=== PATIENT | female | born 1950 | race Caucasian/White ===

== ENCOUNTER 2017-02-18 11:51 | Emergency (ER) | payer OTHER ==
[~2017-02-18] VITALS: Ht 152.4 cm; Wt 65.9 kg
[~2017-02-18 11:51] MED LIST: ACCOLATE20 MG PO; ACETAMINOPHEN325 M1 PO; AFRIN,GENASAL D15 ML BOTH NARES; ASCORBIC ACID500 M3 PO; ATIVAN0.5 MG PO; BENZTROPINE MESY1 MG PO; BISAC-EVAC10 MG PR; CARAFATE1 GM PO; CHLORPROMAZINE200 MG PO; COGENTIN1 MG PO; COLACE100 MG PO; CRANBERRY400 M1 PO; CRANBERRY400 MG PO; DAILY VALUE1 EACH PO; DAILY VITE WIT1 EACH PO; DITROPAN XL15 MG PO; DOCUSATE SODIU100 MG PO; DOXYCYCLINE HY100 MG PO; DULCOLAX10 MG PR; DUONEB 2.5-0.5 M3 ML IH; ESCITALOPRAM OXA5 MG PO; FERROUS SULFAT325 MG PO; FLOMAX0.4 MG PO; FOLIC ACID1 MG PO; FORTICAL,200 INTUNI NS; GLYCOLAX225 GM PO; HALDOL10 MG PO; HALOPERIDOL20 MG PO; LANSOPRAZOLE30 MG PO; LEXAPRO10 MG PO; LEXAPRO5 MG PO; LOPRESSOR12.5 MG PO; LOW DOSE ASPIRI81 M1 PO; METOPROLOL TART25 MG PO; MIRALAX17 GM PO; MIRALAX255 GM PO; MORGIDOX100 MG PO; NABUMETONE500 MG PO; NEXIUM40 MG PO; NITROFURANTOIN100 MG PO; OCEAN NASAL 0.645 ML BOTH NARES; OS-CAL 500+D C1 EAC1 PO; OS-CAL 500+D T1 EAC1 PO; OYST-CAL-500500 MG PO; OYSTERCAL-D 501 EACH PO; PETROLEUM JELL127 GM TP; PREVACID30 MG PO; PROTONIX20 MG PO; RECLAST5 MG/100 M IV; SALINE NASAL SP45 ML BOTH NARES; SENEXON8.6 MG PO; THORAZINE200 MG PO; THORAZINE50 MG PO; TRAMADOL HCL50 MG PO; TYLENOL ARTHRI650 MG PO; TYLENOL REGULA325 MG PO; TYLENOL325 M1 PO; ULTRAM50 MG PO; VITAMIN D-32000 UNI1 PO; VITAMIN D1000 UNIT PO; VITAMIN D31000 UNI2 PO; XARELTO20 MG PO; ZOLEDRONIC5 MG/100 M IV; [UNRECOGNIZED DRUG - OTHER] BOTH NARES; [UNRECOGNIZED DRUG - OTHER] PO
[2017-02-18 14:59] LABS: HEMATOCRIT 29.1 % (36.0-46.0); MCH 27.3 PG (29.0-34.0); MCHC 31.3 G/DL (30.0-36.0); MEAN PLAT.VOLUME 9.4 uM^3 (9.5-12.4); PLATELET COUNT 295 K/uL (156-360); RBC DIS.WIDTH-CV 14.3 % (11.8-14.6); RBC DIS.WIDTH-SD 45.5 % (39-53); RED BLOOD COUNT 3.33 M/uL (3.80-5.20)
[2017-02-18 15:05] LABS: MCV 87.4 FL (83-99); WHITE BLOOD COUNT 9.7 K/uL (4.1-10.2)
[2017-02-18 15:12] LABS: CHLORIDE 104 mEq/L (99-109); POTASSIUM 4.6 mEq/L (3.7-5.4); SODIUM 137 mEq/L (136-147)
[2017-02-18 15:14] LABS: GLUCOSE 97 mg/dL (70-99)
[2017-02-18 15:15] LABS: ANION GAP 11 MEQ/L (2-14)
[2017-02-18 15:16] LABS: TOTAL BILIRUBIN 0.3 mg/dL (0.0-1.0)
[2017-02-18 15:17] LABS: ALKALINE PHOSPHATASE 113 IU/L (3-129)
[2017-02-18 15:18] LABS: GFR ESTIMATE (CALCULATED) 53 mL/min/
[2017-02-18 15:19] LABS: UREA NITROGEN (BUN) 29 mg/dL (9-23)
[2017-02-18 15:41] LABS: ADD MIUA? YES; BILIRUBIN NEGATIVE; BLOOD SMALL; COLOR AMBER ((YELLOW)); GLUCOSE (STRIP) NEGATIVE; KETONES NEGATIVE; LEUKOCYTES SMALL; NITRITE POSITIVE; PROTEIN (STRIP) >=500; SPECIFIC GRAVITY 1.014 (1.000-1.030); UROBILINOGEN 0.2 MG/DL (0.2-1.0)
[2017-02-18 16:10] LABS: RED BLOOD CELLS 0-5 /HPF (0-5); WHITE BLOOD CELLS TNTC /HPF (0-5)
[2017-02-18 16:11] LABS: AMORPHOUS PHOSPHATE CRYSTALS 3+; BACTERIA 3+ /HPF; EPITHELIAL CELLS RARE /HPF; MUCUS NONE SEEN /LPF; UCUL ADDED? YES
[2017-02-18] MEDS ORDERED: KEFLEX500 MG PO (16:29)
[2017-02-18 17:49] VITALS: BP 98/59
== END 2017-02-18 18:12 ==
LOC: EME 11:51
PROVIDERS: Nurse Practitioner Family
DX: N39.0 Urinary tract infection, site not specified (principal); J10.1 Influenza due to other identified influenza virus with other respiratory manifestations; D64.9 Anemia, unspecified; E86.0 Dehydration; J45.909 Unspecified asthma, uncomplicated; F79 Unspecified intellectual disabilities; G89.29 Other chronic pain; I10 Essential (primary) hypertension; M81.0 Age-related osteoporosis without current pathological fracture
CPT/HCPCS: 71010; 80053; 81003; 83605; 85027; 87040; 87077; 87086; 87186; 99281; 99285; J0696; J1885; J7030; J7050

== ENCOUNTER 2017-02-24 14:02 | Emergency (ER) | payer OTHER ==
[~2017-02-24] VITALS: Ht 157.5 cm; Wt 61.3 kg
[~2017-02-24 14:02] MED LIST changes: +KEFLEX500 MG PO
[2017-02-24 15:45] LABS: EOSINOPHIL (%) 2.5 % (0-5); EOSINOPHIL COUNT 0.2 K/uL (0-0.3); IMMATURE GRANULOCYTE (%) 1.4 % (0.0-0.7); IMMATURE GRANULOCYTE COUNT 0.1 K/uL; INSTRUMENT ABS NEUTROPHIL CT 5.2 K/uL; LYMPHOCYTE COUNT 0.7 K/uL (1.0-2.8); MCH 26.6 PG (29.0-34.0); MCHC 30.3 G/DL (30.0-36.0); MCV 87.7 FL (83-99); MONOCYTE (%) 12.1 % (3-12); MONOCYTE COUNT 0.9 K/uL (0-0.8); NEUTROPHIL (%) 73.6 % (45-76); NEUTROPHIL COUNT 5.2 K/uL (1.8-6.4); NRBC (%) 0.3 /100 WBC (0-0); RBC DIS.WIDTH-CV 14.6 % (11.8-14.6); RBC DIS.WIDTH-SD 46.3 % (39-53); RED BLOOD COUNT 3.42 M/uL (3.80-5.20); WHITE BLOOD COUNT 7.1 K/uL (4.1-10.2)
[2017-02-24 15:49] LABS: CHLORIDE 104 mEq/L (99-109); POTASSIUM 4.7 mEq/L (3.7-5.4); SODIUM 139 mEq/L (136-147)
[2017-02-24 15:51] LABS: GLUCOSE 85 mg/dL (70-99)
[2017-02-24 15:53] LABS: ANION GAP 8 MEQ/L (2-14)
[2017-02-24 15:54] LABS: TOTAL BILIRUBIN 0.2 mg/dL (0.0-1.0)
[2017-02-24 15:55] LABS: ALKALINE PHOSPHATASE 106 IU/L (3-129); GFR ESTIMATE (CALCULATED) 44 mL/min/
[2017-02-24 15:56] LABS: UREA NITROGEN (BUN) 29 mg/dL (9-23)
[2017-02-24 17:15] LABS: ADD MIUA? YES; BILIRUBIN NEGATIVE; BLOOD SMALL; COLOR YELLOW ((YELLOW)); GLUCOSE (STRIP) NEGATIVE; KETONES NEGATIVE; LEUKOCYTES LARGE; NITRITE NEGATIVE; PROTEIN (STRIP) NEGATIVE; SPECIFIC GRAVITY 1.012 (1.000-1.030); UROBILINOGEN 0.2 MG/DL (0.2-1.0)
[2017-02-24 17:27] LABS: CASTS NONE SEEN /LPF; EPITHELIAL CELLS 1+ /HPF; MUCUS NONE SEEN /LPF
[2017-02-24 17:28] LABS: BACTERIA 1+ /HPF; UCUL ADDED? YES; WHITE BLOOD CELLS TNTC /HPF (0-5)
[2017-02-24] MEDS ORDERED: BACTRIM,SEPT1 TABLET PO (17:36)
[2017-02-24 18:30] VITALS: BP 115/65
== END 2017-02-24 18:32 ==
LOC: EME 14:02
PROVIDERS: Emergency Medicine
DX: N39.0 Urinary tract infection, site not specified (principal); I10 Essential (primary) hypertension; F79 Unspecified intellectual disabilities
CPT/HCPCS: 80053; 81003; 83605; 85025; 87040; 87086; 99281; 99285; J7030

== ENCOUNTER 2017-11-06 13:08 | Inpatient (IN) | payer OTHER ==
[~2017-11-06] VITALS: Ht 154.9 cm; Wt 57.5 kg
[~2017-11-06 13:08] MED LIST changes: +BACTRIM,SEPT1 TABLET PO
[2017-11-06 14:10] LABS: HEMOGLOBIN 9.9 G/DL (11.9-15.5); MCH 27.3 PG (29.0-34.0); MCHC 30.9 G/DL (30.0-36.0); MCV 88.4 FL (83-99); PLATELET COUNT 359 K/uL (156-360); RBC DIS.WIDTH-CV 15.1 % (11.8-14.6); RBC DIS.WIDTH-SD 49.1 % (39-53); RED BLOOD COUNT 3.62 M/uL (3.80-5.20); WHITE BLOOD COUNT 9.1 K/uL (4.1-10.2)
[2017-11-06 14:19] LABS: ALBUMIN 2.9 g/dL (3.2-4.8); CHLORIDE 106 mEq/L (99-109); POTASSIUM 4.2 mEq/L (3.7-5.4); SODIUM 137 mEq/L (136-147)
[2017-11-06 14:22] LABS: GLUCOSE 142 mg/dL (70-99); TOTAL PROTEIN 6.3 g/dL (6.4-8.3)
[2017-11-06 14:24] LABS: TOTAL BILIRUBIN 0.2 mg/dL (0.0-1.0)
[2017-11-06 14:25] LABS: ALKALINE PHOSPHATASE 144 IU/L (3-129); CREATININE 1.3 mg/dL (0.6-1.3); GFR ESTIMATE (CALCULATED) 43 mL/min/
[2017-11-06 14:26] LABS: UREA NITROGEN (BUN) 35 mg/dL (9-23)
[2017-11-06 14:27] LABS: AST (GOT) 31 IU/L (2-34)
[2017-11-06 14:28] LABS: ALT (GPT) 37 IU/L (3-49)
[2017-11-06 14:43] LABS: BASOPHIL (%) 0.2 % (0-1); EOSINOPHIL (%) 0.8 % (0-5); EOSINOPHIL COUNT 0.1 K/uL (0-0.3); IMMATURE GRANULOCYTE (%) 0.3 % (0.0-0.7); LYMPHOCYTE (%) 4.6 % (15-42); LYMPHOCYTE COUNT 0.4 K/uL (1.0-2.8); MONOCYTE (%) 10.5 % (3-12); NEUTROPHIL (%) 83.6 % (45-76); NEUTROPHIL COUNT 7.6 K/uL (1.8-6.4)
[2017-11-06 15:18] LABS: LIPASE 7 U/L (1.0-51.0)
[2017-11-06 15:23] LABS: TROP-I INTERPRETATION NEGATIVE; TROPONIN-I < 0.01 ng/mL (0.0-0.30)
[2017-11-06 15:25] LABS: APPEARANCE CLOUDY ((CLEAR)); BILIRUBIN NEGATIVE; BLOOD NEGATIVE; COLOR AMBER ((YELLOW)); GLUCOSE (STRIP) NEGATIVE; KETONES 5; LEUKOCYTES TRACE; NITRITE NEGATIVE; PROTEIN (STRIP) 100; SPECIFIC GRAVITY 1.019 (1.000-1.030)
[2017-11-06 15:34] LABS: BACTERIA 1+ /HPF; CALCIUM OXALATE CRYSTALS 1+ /HPF; EPITHELIAL CELLS RARE /HPF; MUCUS NONE SEEN /LPF; RED BLOOD CELLS NONE SEEN /HPF (0-5); UCUL ADDED? YES; WHITE BLOOD CELLS TNTC /HPF (0-5)
[2017-11-06] MEDS ORDERED: ASCORBIC ACID500 M3 PO (16:38)
[2017-11-06] MEDS ORDERED: ZINC SULFATE220 MG PO (16:40)
[2017-11-06] MEDS ORDERED: CHLORPROMAZINE200 MG PO (16:44)
[2017-11-06] MEDS ORDERED: FOLIC ACID1 MG PO (16:47)
[2017-11-06] MEDS ORDERED: LAXATIVE SUPPOS10 MG PR (16:51)
[2017-11-06] MEDS ORDERED: OCEAN NASAL 0.645 ML BOTH NARES (16:54)
[2017-11-06 17:07] LABS: INTER. NORMALIZED RATIO 1.2
[2017-11-06 17:09] LABS: PTT 49.3 SEC (25-37)
[2017-11-06 18:22] VITALS: BP 111/61
[2017-11-06 22:31] VITALS: BP 117/63
[2017-11-07 06:52] LABS: HEMATOCRIT 28.1 % (36.0-46.0); HEMOGLOBIN 8.9 G/DL (11.9-15.5); MCHC 31.7 G/DL (30.0-36.0); MCV 88.4 FL (83-99); PLATELET COUNT 335 K/uL (156-360); RBC DIS.WIDTH-CV 15.1 % (11.8-14.6); RED BLOOD COUNT 3.18 M/uL (3.80-5.20); WHITE BLOOD COUNT 7.5 K/uL (4.1-10.2)
[2017-11-07 07:02] LABS: CREATININE 1.1 MG/DL (0.6-1.3); GFR ESTIMATE (CALCULATED) 53 mL/min/; POTASSIUM 4.5 MEQ/L (3.7-5.4); SODIUM 142 MEQ/L (136-147); UREA NITROGEN (BUN) 27 mg/dL (9-23)
[2017-11-07 07:05] LABS: CHLORIDE 110 MEQ/L (99-109); GLUCOSE 89 mg/dL (70-99)
[2017-11-07 08:31] VITALS: BP 125/70
[2017-11-07 15:28] VITALS: BP 115/65
[2017-11-08 00:08] VITALS: BP 125/76
[2017-11-08 07:32] VITALS: BP 142/73
[2017-11-08 16:02] VITALS: BP 123/68
[2017-11-08 22:53] VITALS: BP 141/83
[2017-11-09 06:43] LABS: CREATININE 0.8 MG/DL (0.6-1.3); GFR ESTIMATE (CALCULATED) > 59 mL/min/
[2017-11-09 07:12] VITALS: BP 138/76
[2017-11-09 16:07] VITALS: BP 144/77
[2017-11-10 00:01] VITALS: BP 140/73
[2017-11-10 06:35] VITALS: BP 128/60
[2017-11-10 14:55] VITALS: BP 135/60
[2017-11-10 15:24] LABS: BASOPHIL (%) 0.3 % (0-1); EOSINOPHIL (%) 2.3 % (0-5); EOSINOPHIL COUNT 0.3 K/uL (0-0.3); HEMATOCRIT 29.5 % (36.0-46.0); HEMOGLOBIN 8.8 G/DL (11.9-15.5); IMMATURE GRANULOCYTE (%) 0.8 % (0.0-0.7); LYMPHOCYTE (%) 4.3 % (15-42); LYMPHOCYTE COUNT 0.6 K/uL (1.0-2.8); MCH 26.9 PG (29.0-34.0); MCHC 29.8 G/DL (30.0-36.0); MCV 90.2 FL (83-99); MONOCYTE (%) 8.9 % (3-12); MONOCYTE COUNT 1.2 K/uL (0-0.8); NEUTROPHIL (%) 83.4 % (45-76); NEUTROPHIL COUNT 11.2 K/uL (1.8-6.4); PLATELET COUNT 406 K/uL (156-360); RBC DIS.WIDTH-CV 15.4 % (11.8-14.6); RBC DIS.WIDTH-SD 50.5 % (39-53); RED BLOOD COUNT 3.27 M/uL (3.80-5.20); WHITE BLOOD COUNT 13.4 K/uL (4.1-10.2)
[2017-11-10 15:54] LABS: CHLORIDE 115 MEQ/L (99-109); CREATININE 0.7 MG/DL (0.6-1.3); GFR ESTIMATE (CALCULATED) > 59 mL/min/; GLUCOSE 143 mg/dL (70-99); POTASSIUM 3.9 MEQ/L (3.7-5.4); UREA NITROGEN (BUN) 15 mg/dL (9-23)
[2017-11-10 15:56] LABS: SODIUM 151 MEQ/L (136-147)
[2017-11-10 23:56] VITALS: BP 137/75
[2017-11-11 06:40] VITALS: BP 98/60
[2017-11-11 15:54] VITALS: BP 138/63
[2017-11-11 23:30] VITALS: BP 142/84
[2017-11-12 07:48] VITALS: BP 124/71
[2017-11-12] MEDS ORDERED: TYLENOL ARTHRI650 MG PO (12:01)
[2017-11-12] MEDS ORDERED: HALOPERIDOL20 MG PO (12:01)
[2017-11-12] MEDS ORDERED: CHLORPROMAZINE200 MG PO ×2 (12:01)
[2017-11-12] MEDS ORDERED: LEXAPRO5 MG PO (12:01)
[2017-11-12] MEDS ORDERED: LEXAPRO10 MG PO (12:01)
[2017-11-12 16:06] VITALS: BP 127/69
[2017-11-13 00:41] VITALS: BP 113/69
[2017-11-13 07:33] VITALS: BP 149/110
== END 2017-11-13 09:57 | disposition hospice, home (50) | DRG 871 ==
LOC: DELPENDDIS → EME 13:08 → 5EAST 16:13 → EDOF 16:13 → ENRESERV 16:15 → 5EAST 18:05 → ENPENDDIS 11-12 → 5EAST 11-13 09:57
PROVIDERS: Internal Medicine; Physician Assistant
DX: A41.9 Sepsis, unspecified organism (principal); J69.0 Pneumonitis due to inhalation of food and vomit; J96.01 Acute respiratory failure with hypoxia; N39.0 Urinary tract infection, site not specified; J98.11 Atelectasis; F05 Delirium due to known physiological condition; F33.9 Major depressive disorder, recurrent, unspecified; N17.9 Acute kidney failure, unspecified; Z51.5 Encounter for palliative care; Z66 Do not resuscitate; M81.0 Age-related osteoporosis without current pathological fracture; M24.532 Contracture, left wrist; M24.531 Contracture, right wrist; I78.0 Hereditary hemorrhagic telangiectasia; I10 Essential (primary) hypertension; H54.8 Legal blindness, as defined in USA; J45.909 Unspecified asthma, uncomplicated; F03.90 Unspecified dementia, unspecified severity, without behavioral disturbance, psychotic disturbance, mood disturbance, and anxiety; F79 Unspecified intellectual disabilities; R04.0 Epistaxis; L89.159 Pressure ulcer of sacral region, unspecified stage; G25.89 Other specified extrapyramidal and movement disorders; N39.41 Urge incontinence; I95.9 Hypotension, unspecified; Z99.3 Dependence on wheelchair; Z85.3 Personal history of malignant neoplasm of breast; Z99.81 Dependence on supplemental oxygen; Z88.1 Allergy status to other antibiotic agents; Z90.01 Acquired absence of eye
CPT/HCPCS: 36415; 36600; 71045; 80048; 80053; 81003; 82565; 82803; 83605; 83690; 83880; 84484; 85025; 85027; 85610; 85730; 87040; 87077; 87086; 87186; 93005; 94760; 94799; 99202; 99281; 99285; A6214; J0456; J1650; J2060; J2270; J2543; J3370; J7030; J7050

== ENCOUNTER 2018-03-15 14:30 | Inpatient (IN) | payer OTHER ==
[~2018-03-15] VITALS: Ht 152.4 cm; Wt 60.0 kg
[~2018-03-15 14:30] MED LIST changes: +LAXATIVE SUPPOS10 MG PR; +ZINC SULFATE220 MG PO
[2018-03-15 15:12] LABS: HEMATOCRIT 16.8 % (36.0-46.0); HEMOGLOBIN 4.1 G/DL (11.9-15.5); MCH 17.2 PG (29.0-34.0); MCHC 24.4 G/DL (30.0-36.0); MCV 70.3 FL (83-99); NRBC (%) 0.6 /100 WBC (0-0); PLATELET COUNT 403 K/uL (156-360); RBC DIS.WIDTH-SD 50.8 % (39-53); RED BLOOD COUNT 2.39 M/uL (3.80-5.20); WHITE BLOOD COUNT 6.4 K/uL (4.1-10.2)
[2018-03-15 15:15] LABS: CHLORIDE 108 mEq/L (99-109); SODIUM 141 mEq/L (136-147)
[2018-03-15 15:18] LABS: GLUCOSE 138 mg/dL (70-99)
[2018-03-15 15:19] LABS: INTER. NORMALIZED RATIO 1.1
[2018-03-15 15:21] LABS: CREATININE 1.2 mg/dL (0.6-1.3); GFR ESTIMATE (CALCULATED) 48 mL/min/; PTT 42.5 SEC (25-37)
[2018-03-15 15:22] LABS: UREA NITROGEN (BUN) 22 mg/dL (9-23)
[2018-03-15] MEDS ORDERED: AYR SALINE NA14.1 GM BOTH NARES (19:06)
[2018-03-15] MEDS ORDERED: THORAZINE200 MG PO (19:08)
[2018-03-15] MEDS ORDERED: LEXAPRO10 MG PO (19:15)
[2018-03-15] MEDS ORDERED: HALOPERIDOL20 MG PO (19:16)
[2018-03-15] MEDS ORDERED: OCEAN NASAL 0.645 ML BOTH NARES (19:18)
[2018-03-15] MEDS ORDERED: ENSURE PLUS237 ML PO (19:19)
[2018-03-15] MEDS ORDERED: DULCOLAX10 MG PR (19:20)
[2018-03-15] MEDS ORDERED: DUONEB 2.5-0.5 M3 ML AEROSOL (19:21)
[2018-03-15] MEDS ORDERED: AFRIN,GENASAL D15 ML BOTH NARES (19:22)
[2018-03-15] MEDS ORDERED: TYLENOL325 M2 PO (19:23)
[2018-03-15 20:51] VITALS: BP 120/70
[2018-03-15 21:40] VITALS: BP 108/69
[2018-03-15 22:11] VITALS: BP 110/71
[2018-03-15 22:20] VITALS: BP 110/71
[2018-03-15 22:35] VITALS: BP 117/67
[2018-03-16] VITALS (10 sets, daily range): BP systolic 114–142; BP diastolic 55–76
[2018-03-16 00:54] LABS: TROP-I INTERPRETATION NEGATIVE; TROPONIN-I < 0.01 ng/mL (0.0-0.30)
[2018-03-16 02:23] LABS: HEMATOCRIT 25.3 % (36.0-46.0); HEMOGLOBIN 7.3 G/DL (11.9-15.5)
[2018-03-16 07:05] LABS: HEMATOCRIT 26.3 % (36.0-46.0); HEMOGLOBIN 7.4 G/DL (11.9-15.5); MCHC 28.1 G/DL (30.0-36.0); MCV 75.4 FL (83-99); NRBC (%) 1.5 /100 WBC (0-0); PLATELET COUNT 345 K/uL (156-360); RBC DIS.WIDTH-CV 20.4 % (11.8-14.6); RBC DIS.WIDTH-SD 55.7 % (39-53); WHITE BLOOD COUNT 5.2 K/uL (4.1-10.2)
[2018-03-16 07:07] LABS: MCH 21.2 PG (29.0-34.0); RED BLOOD COUNT 3.49 M/uL (3.80-5.20)
[2018-03-16 07:34] LABS: TROP-I INTERPRETATION NEGATIVE; TROPONIN-I < 0.01 ng/mL (0.0-0.30)
[2018-03-16 07:35] LABS: CHLORIDE 110 MEQ/L (99-109); CREATININE 1.3 MG/DL (0.6-1.3); GFR ESTIMATE (CALCULATED) 43 mL/min/; POTASSIUM 4.3 MEQ/L (3.7-5.4); SODIUM 145 MEQ/L (136-147); UREA NITROGEN (BUN) 22 mg/dL (9-23)
[2018-03-16 07:38] LABS: GLUCOSE 77 mg/dL (70-99)
[2018-03-17 03:36] VITALS: BP 128/59
[2018-03-17 05:11] LABS: HEMATOCRIT 30.8 % (36.0-46.0); HEMOGLOBIN 8.7 G/DL (11.9-15.5); MCH 21.6 PG (29.0-34.0); MCHC 28.2 G/DL (30.0-36.0); MCV 76.4 FL (83-99); NRBC (%) 0.4 /100 WBC (0-0); PLATELET COUNT 333 K/uL (156-360); RBC DIS.WIDTH-CV 21.2 % (11.8-14.6); RBC DIS.WIDTH-SD 58.6 % (39-53); RED BLOOD COUNT 4.03 M/uL (3.80-5.20); WHITE BLOOD COUNT 5.6 K/uL (4.1-10.2)
[2018-03-17 05:33] LABS: BASOPHIL (%) 0.4 % (0-1); EOSINOPHIL (%) 1.8 % (0-5); EOSINOPHIL COUNT 0.1 K/uL (0-0.3); IMMATURE GRANULOCYTE (%) 0.2 % (0.0-0.7); LYMPHOCYTE (%) 8.3 % (15-42); LYMPHOCYTE COUNT 0.5 K/uL (1.0-2.8); MONOCYTE (%) 13.5 % (3-12); MONOCYTE COUNT 0.8 K/uL (0-0.8); NEUTROPHIL (%) 75.8 % (45-76); NEUTROPHIL COUNT 4.3 K/uL (1.8-6.4)
[2018-03-17 05:38] LABS: CHLORIDE 109 MEQ/L (99-109); CREATININE 1.1 MG/DL (0.6-1.3); GFR ESTIMATE (CALCULATED) 53 mL/min/; GLUCOSE 84 mg/dL (70-99); POTASSIUM 4.5 MEQ/L (3.7-5.4); SODIUM 145 MEQ/L (136-147); UREA NITROGEN (BUN) 28 mg/dL (9-23)
[2018-03-17 07:42] VITALS: BP 131/65
[2018-03-17 11:55] VITALS: BP 114/57
[2018-03-17 14:57] VITALS: BP 113/56
== END 2018-03-17 18:47 | disposition home or self-care (01) | DRG 812 ==
LOC: EME 14:30 → 4EAST 21:55 → EDOF 21:55 → ENRESERV 21:59 → 4EAST 03-16 01:19
PROVIDERS: Emergency Medicine; Hospitalist; Internal Medicine
PROC: 30233N1 Transfusion of Nonautologous Red Blood Cells into Peripheral Vein, Percutaneous Approach (ICD-10-PCS; principal; 2018-03-15)
DX: D64.9 Anemia, unspecified (principal); I78.0 Hereditary hemorrhagic telangiectasia; F79 Unspecified intellectual disabilities; H54.3 Unqualified visual loss, both eyes; M81.0 Age-related osteoporosis without current pathological fracture; I10 Essential (primary) hypertension; J45.909 Unspecified asthma, uncomplicated; Z66 Do not resuscitate; K44.9 Diaphragmatic hernia without obstruction or gangrene; F32.9 Major depressive disorder, single episode, unspecified
CPT/HCPCS: 36415; 74176; 80048; 80053; 80061; 81003; 82607; 83036; 84439; 84443; 84484; 85014; 85018; 85025; 85027; 85610; 85730; 86850; 86900; 86901; 86920; 99281; 99285; A6214; C1753; J1940; P9016

== ENCOUNTER 2018-05-17 16:03 | Inpatient (IN) | payer OTHER ==
[~2018-05-17] VITALS: Ht 162.6 cm; Wt 61.0 kg
[~2018-05-17 16:03] MED LIST changes: +AYR SALINE NA14.1 GM BOTH NARES; +DUONEB 2.5-0.5 M3 ML AEROSOL; +ENSURE PLUS237 ML PO; +TYLENOL325 M2 PO
[2018-05-17 17:55] LABS: MCH 21.8 PG (29.0-34.0); MCHC 28.7 G/DL (30.0-36.0); MCV 75.9 FL (83-99); NRBC (%) 0.5 /100 WBC (0-0); PLATELET COUNT 378 K/uL (156-360); RBC DIS.WIDTH-CV 17.6 % (11.8-14.6); RBC DIS.WIDTH-SD 48.6 % (39-53); RED BLOOD COUNT 3.03 M/uL (3.80-5.20); WHITE BLOOD COUNT 7.3 K/uL (4.1-10.2)
[2018-05-17 17:56] LABS: HEMOGLOBIN 6.6 G/DL (11.9-15.5)
[2018-05-17 17:57] LABS: INTER. NORMALIZED RATIO 1.2
[2018-05-17 17:59] LABS: ALBUMIN 3.5 g/dL (3.2-4.8); CHLORIDE 103 mEq/L (99-109); POTASSIUM 4.5 mEq/L (3.7-5.4); PTT 40.7 SEC (25-37); SODIUM 138 mEq/L (136-147)
[2018-05-17 18:01] LABS: GLUCOSE 102 mg/dL (70-99)
[2018-05-17 18:02] LABS: TOTAL PROTEIN 7.3 g/dL (6.4-8.3)
[2018-05-17 18:03] LABS: TOTAL BILIRUBIN 0.4 mg/dL (0.0-1.0)
[2018-05-17 18:05] LABS: ALKALINE PHOSPHATASE 105 IU/L (3-129); CREATININE 1.1 mg/dL (0.6-1.3); GFR ESTIMATE (CALCULATED) 53 mL/min/
[2018-05-17 18:06] LABS: UREA NITROGEN (BUN) 26 mg/dL (9-23)
[2018-05-17 18:07] LABS: AST (GOT) 31 IU/L (2-34); DIRECT BILIRUBIN 0.2 mg/dL (0.0-0.3)
[2018-05-17 18:08] LABS: ALT (GPT) 21 IU/L (3-49)
[2018-05-17 18:25] LABS: APPEARANCE TURBID ((CLEAR)); BILIRUBIN NEGATIVE; BLOOD MODERATE; COLOR YELLOW ((YELLOW)); GLUCOSE (STRIP) NEGATIVE; KETONES NEGATIVE; LEUKOCYTES LARGE; NITRITE POSITIVE; PROTEIN (STRIP) 100; SPECIFIC GRAVITY 1.006 (1.000-1.030); UROBILINOGEN 0.2 MG/DL (0.2-1.0)
[2018-05-17 18:57] LABS: FERRITIN 8 NG/ML (10-291)
[2018-05-17 19:09] LABS: TRANSFERRIN (TIBC) 283.9 mg/dL (215-380)
[2018-05-17] MEDS ORDERED: ESCITALOPRAM OXA5 MG PO (20:22)
[2018-05-17] MEDS ORDERED: ESCITALOPRAM OX10 MG PO (20:22)
[2018-05-17] MEDS ORDERED: BENZTROPINE ME0.5 MG PO (20:23)
[2018-05-17] MEDS ORDERED: POLYETHYLENE G255 GM PO (20:27)
[2018-05-17 21:44] VITALS: BP 107/58
[2018-05-17 23:50] VITALS: BP 135/65
[2018-05-18] VITALS (10 sets, daily range): BP systolic 100–147; BP diastolic 51–76
[2018-05-18 06:00] LABS: HEMATOCRIT 26.9 % (36.0-46.0); HEMOGLOBIN 7.7 G/DL (11.9-15.5); MCH 22.5 PG (29.0-34.0); MCHC 28.6 G/DL (30.0-36.0); MCV 78.7 FL (83-99); NRBC (%) 0.5 /100 WBC (0-0); PLATELET COUNT 315 K/uL (156-360); RBC DIS.WIDTH-CV 17.9 % (11.8-14.6); RBC DIS.WIDTH-SD 51.2 % (39-53); RED BLOOD COUNT 3.42 M/uL (3.80-5.20); WHITE BLOOD COUNT 6.2 K/uL (4.1-10.2)
[2018-05-19 05:56] LABS: HEMATOCRIT 30.9 % (36.0-46.0); HEMOGLOBIN 9.2 G/DL (11.9-15.5); MCH 23.5 PG (29.0-34.0); MCHC 29.8 G/DL (30.0-36.0); NRBC (%) 0.4 /100 WBC (0-0); PLATELET COUNT 296 K/uL (156-360); RBC DIS.WIDTH-CV 18.4 % (11.8-14.6); RBC DIS.WIDTH-SD 52.5 % (39-53); RED BLOOD COUNT 3.91 M/uL (3.80-5.20); WHITE BLOOD COUNT 4.7 K/uL (4.1-10.2)
[2018-05-19 06:20] LABS: ALBUMIN 3.1 G/DL (3.2-4.8); ALKALINE PHOSPHATASE 76 IU/L (3-129); ALT (GPT) 13 IU/L (3-49); AST (GOT) 16 IU/L (2-34); CHLORIDE 111 MEQ/L (99-109); GFR ESTIMATE (CALCULATED) 59 mL/min/; GLUCOSE 79 mg/dL (70-99); POTASSIUM 4.3 MEQ/L (3.7-5.4); SODIUM 143 MEQ/L (136-147); TOTAL BILIRUBIN 0.5 MG/DL (0.0-1.0); TOTAL PROTEIN 5.9 G/DL (6.4-8.3); UREA NITROGEN (BUN) 22 mg/dL (9-23)
[2018-05-19 07:31] VITALS: BP 140/77
[2018-05-19 17:25] VITALS: BP 130/64
[2018-05-20 00:08] VITALS: BP 109/57
[2018-05-20 06:51] LABS: HEMATOCRIT 31.2 % (36.0-46.0); HEMOGLOBIN 9.4 G/DL (11.9-15.5); MCHC 30.1 G/DL (30.0-36.0); MCV 79.6 FL (83-99); PLATELET COUNT 273 K/uL (156-360); RBC DIS.WIDTH-CV 19.3 % (11.8-14.6); RBC DIS.WIDTH-SD 54.7 % (39-53); RED BLOOD COUNT 3.92 M/uL (3.80-5.20); WHITE BLOOD COUNT 3.7 K/uL (4.1-10.2)
[2018-05-20 07:00] VITALS: BP 106/59
[2018-05-20 15:42] VITALS: BP 150/80
[2018-05-20 23:00] VITALS: BP 122/84
[2018-05-21 06:54] VITALS: BP 149/68
[2018-05-21 15:30] VITALS: BP 111/57
== END 2018-05-21 19:32 | disposition home or self-care (01) | DRG 812 ==
LOC: EME 16:03 → EDOF 19:40 → 5EAST 19:40 → CANRESERV 20:03 → ENRESERV 20:03 → 5EAST 21:36
PROVIDERS: Emergency Medicine; Family Medicine; Internal Medicine
PROC: 30233N1 Transfusion of Nonautologous Red Blood Cells into Peripheral Vein, Percutaneous Approach (ICD-10-PCS; principal; 2018-05-17)
DX: D50.0 Iron deficiency anemia secondary to blood loss (chronic) (principal); I78.0 Hereditary hemorrhagic telangiectasia; R04.0 Epistaxis; E86.0 Dehydration; N39.0 Urinary tract infection, site not specified; F31.9 Bipolar disorder, unspecified; M81.0 Age-related osteoporosis without current pathological fracture; I10 Essential (primary) hypertension; H54.3 Unqualified visual loss, both eyes; I25.10 Atherosclerotic heart disease of native coronary artery without angina pectoris; F32.9 Major depressive disorder, single episode, unspecified; G83.21 Monoplegia of upper limb affecting right dominant side; R31.9 Hematuria, unspecified; F79 Unspecified intellectual disabilities; K21.9 Gastro-esophageal reflux disease without esophagitis; E66.9 Obesity, unspecified; G40.909 Epilepsy, unspecified, not intractable, without status epilepticus; Z66 Do not resuscitate; Z90.49 Acquired absence of other specified parts of digestive tract; Q68.8 Other specified congenital musculoskeletal deformities; Z68.23 Body mass index [BMI] 23.0-23.9, adult
CPT/HCPCS: 71045; 80053; 81003; 82248; 82728; 82746; 83605; 84466; 85027; 85610; 85730; 86850; 86870; 86900; 86901; 86905; 86920; 87040; 87077; 87086; 87186; 93005; 94799; 99281; 99285; C1753; C9113; J0696; J2270; J7030; J7050; P9016; Q0138; Q0161